=== PATIENT | male | born 1940 | race African-American/Black ===

== ENCOUNTER 2022-11-10 14:31 | Emergency (ER) | payer MEDICAID, OTHER ==
[~2022-11-10] VITALS: Ht 177.8 cm; Wt 99.0 kg
[2022-11-10 14:34] VITALS: BP 159/95
[2022-11-10 16:00] LABS: BASOPHILS % 0.5 % (0.0-2.0); HEMOGLOBIN. 14.2 g/dL (14.0-18.0); LYMPHOCYTES % 27.9 % (20.0-50.0); MEAN CORPUSCULAR HEMOGLOBIN 30.8 pg (28.0-32.0); MEAN CORPUSCULAR VOLUME 91.1 fL (80.0-94.0); MEAN PLATELET VOLUME 8.7 fl (7.4-10.4); MONOCYTES % 11.5 % (2.0-8.0); NEUTROPHILS % 58.1 % (40.0-76.0); PLATELET 227 x1000/uL (130-400); RED BLOOD CELL COUNT 4.61 mill/uL (4.7-6.1); RED CELL DISTRIBUTION WIDTH 14.6 % (11.6-14.6)
[2022-11-10 16:09] LABS: PROTHROMBIN TIME 10.7 sec (9.6-11.0)
[2022-11-10 16:26] LABS: CHLORIDE 109 mEq/L (98-107)
== END 2022-11-10 22:38 | disposition left against medical advice (07) ==
LOC: ER 14:31
DX: R07.89 Other chest pain (principal)
CPT/HCPCS: 36415; 71045; 80053; 83880; 84484; 85025; 93005; 99285